=== PATIENT | male | born 2000 | race Caucasian/White ===

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

== ENCOUNTER → 2024-03-13 | Outpatient (CLI) | payer BC | LOC: M PLAIMG 06:34 | PROVIDERS: ATTEND Student in an Organized Health Care Education/Training Program | DX: M25.361 Other instability, right knee (principal); S83.511A Sprain of anterior cruciate ligament of right knee, initial encounter; Y93.9 Activity, unspecified; Y92.9 Unspecified place or not applicable ==